=== PATIENT | male | born 1985 | race African-American/Black ===

== ENCOUNTER 2016-03-25 14:50 | Emergency (ER) | payer OTHER ==
[~2016-03-25] VITALS: Ht 160 cm; Wt 80.7 kg
[2016-03-25 20:28] VITALS: BP 134/82
== END 2016-03-25 20:41 | disposition short-term general hospital (02) ==
LOC: EME → EDBD 14:50 → EME 20:41
DX: S09.90XA Unspecified injury of head, initial encounter (principal); M54.2 Cervicalgia; R07.81 Pleurodynia; Y04.0XXA Assault by unarmed brawl or fight, initial encounter
CPT/HCPCS: 70450; 70486; 71101; 72125; 99281; 99284; J2270; J2405; J7040